=== PATIENT | female | born 1990 | race Caucasian/White ===

== ENCOUNTER 2017-04-09 18:36 | Emergency (ER) | payer OTHER ==
[2017-04-09] MEDS ORDERED: ALBUTEROL SULFATE/IPRATROPIUM 3 ML NEBU IH ONE ×2 (18:56→19:01)
--- NOTE | 2017-04-09 18:57 | ERNOTE ---
Date of Service: 04/09/17 Time Seen by Provider: 04/09/17 18:51 Stated Complaint: COUGH, CHEST CONGESTION Presenting Symptoms:: cough Source: patient, family, RN notes reviewed Exam Limitations: no limitations Immunizations: IMMUNIZATION HX Immunizations Up to Date Yes History of Influenza Vaccine No Hx Pneumococcal Vaccination No Allergies/Adverse Reactions: Allergies diclofenac [From Voltaren] Allergy (Severe, Verified 04/09/17 18:46) Anaphylaxis cefaclor [From Ceclor] Allergy (Intermediate, Verified 04/09/17 18:46) Hives Home Medications: HOME MEDICATIONS Albuterol Sulfate [Albuterol Sulfate 2.5 MG/3 ML] 2.5 mg IH Q4H #60 vial.neb 12/17 [Last Taken Unknown] Albuterol Sulfate [Ventolin Hfa] 1 - 2 puff IH Q4H PRN #1 inhaler 04/09/17 [ Last Taken Unknown] Cetirizine HCl [Zyrtec] 10 mg PO DAILY 04/09/17 [Last Taken Unknown] Diphenhydramine HCl [Benadryl Allergy] 50 mg PO BID 04/09/17 [Last Taken Unknown ] Fluticasone Propionate [Clarispray] 9.9 ml NS DAILY 04/09/17 [Last Taken Unknown ] Multivitamin [Multivitamins] 1 each PO DAILY 04/09/17 [Last Taken Unknown] Omeprazole 10 mg PO DAILY 04/09/17 [Last Taken Unknown] Promethazine HCl/Codeine [Prometh-Codein 6.25-10 mg/5 ml] 5 ml PO Q4H PRN #120 ml 04/09/17 [Last Taken Unknown] predniSONE [Prednisone] 2 tab PO DAILY #14 tab 04/09/17 [Last Taken Unknown] - History of Present Ilness Narrative: 27 year old female presents to the ED for a cough and wheezing that began 2 weeks ago. She was seen in an outside ED and diagnosed with bronchitis. She has underlying asthma. She was given an IM dose of steroids and an antibiotic - she believes this may have been Biaxin. She has finished it. She continues to have a frequent harsh cough and wheezing. She has been using her albuterol nebulizer with some improvement. Timing: getting worse Frequency/Possible Cause: Reports: illness exposure Associated Symptoms: Reports: cough, shortness of breath, wheezing, nasal congestion, headache. Denies: chest pain/soreness, facial pain, nasal drainage , dizziness, lightheadedness, earache, sore throat, muscle aches, fever/chills Prior Treatment: Reports: recently seen, treated by physician Review of Systems - Review of Systems Constitutional: Present: fatigue, malaise. Absent: fever, chills EYE: Present: no symptoms reported ENT: Present: See HPI Respiratory: Present: See HPI Cardiology: Absent: palpitations, syncope, edema Gastrointestinal/Abdominal: Absent: nausea, abdominal pain Genitourinary: Present: no symptoms reported Musculoskeletal: Absent: muscle pain, neck pain Skin: Absent: rash, lesions Neurological: Present: See HPI Endocrine: Present: no symptoms reported Hematologic/Lymphatic: Present: no symptoms reported Psych: Absent: anxiety - Patient's Past Medical History Patient History - Medical: No pertinent hx Patient History - Cardiac/Respiratory: Asthma Patient History - Cancer: No Hx of Cancer Patient History - Surgical Procedures: Ear Tubes, T & A Patient History - Other: None LMP (females 10-50): 3 weeks LMP (Calendar): 03/24/17 - Family History Mother Family History - Cardiac/Respiratory: CHF, Hypertension, Other Father Family History - Medical: Diabetes Type 2 Insulin Dependent - Social History Living Situations: home Abuse History: No History of abuse Psych History: No pertinent hx Smoking Status: Never smoker Have you smoked in the past 12 months: No Do you dip or chew tobacco: No Alcohol Use: none Drug Use: none - Immunizations Immunizations Up to Date: Yes Hx Pneumococcal Vaccination: No History of Influenza Vaccine: No Physical Exam - Physical Exam General Appearance: Present: wd/wn, alert, no apparent distress Ears, Nose, Throat: Present: nasal congestion. Absent: abnormal TM (R), abnormal TM (L), sinus pain/drainage, pharyngeal erythema, dry mucous membranes Neck: Present: normal inspection, nontender, supple Respiratory: Present: no respiratory distress, no accessory muscle use, expiration (prolonged), wheezing Cardiovascular/Chest: Present: regular rate, rhythm, no murmur, normal peripheral pulses Extremity Exam: Present: normal inspection, normal range of motion, no edema Neurological Exam: Present: alert, oriented, normal mood/affect, no motor/ sensory deficits Skin Exam: Present: normal color, warm/dry ED Progress - Vital Signs Patient's Vital Signs:: I have reviewed the patient's vital signs. Vital Signs: Vital Signs 04/09/17 18:41 Temperature 37.1 C Pulse Rate 109 H Respiratory 14 Rate Blood Pressure 130/92 O2 Sat by Pulse 95 Oximetry - Progress/Reassessment Chief Complaint: Cough Progress:: Unchanged Plan - Plan Plan: Duoneb given without much improvement but patient does not appear to be in any distress. SpO2 94 to 97%. Continues to have expiratory wheezing but with good air movement. Given prednisone and cough syrup prior to d/c. Discussed indications for needing f/u. Patient in agreement with plan. Departure Clinical Impression: Asthma exacerbation Qualifiers: Asthma severity: unspecified severity Asthma persistence: unspecified Qualified Code(s): J45.901 - Unspecified asthma with (acute) exacerbation - Departure Disposition: Home Follow Up Needed Condition: Stable Instructions: Asthma, Acute Bronchospasm, Form - Excuse from Work, School, or Physical Activity Prescriptions: Albuterol Sulfate [Ventolin Hfa] 1 - 2 puff IH Q4H PRN #1 inhaler PRN Reason: Shortness Of Breath Albuterol Sulfate [Albuterol Sulfate 2.5 MG/3 ML] 2.5 mg IH Q4H #60 vial.neb predniSONE [Prednisone] 2 tab PO DAILY #14 tab Promethazine HCl/Codeine [Prometh-Codein 6.25-10 mg/5 ml] 5 ml PO Q4H PRN #120 ml PRN Reason: Cough
[2017-04-09] MEDS ORDERED: predniSONE 20 MG TABLET PO ONE (19:35)
[2017-04-09] MEDS ORDERED: CODEINE PHOSPHATE/GUAIFENESIN 5 ML UDC PO ONE (19:36)
[2017-04-09] MEDS ORDERED: CODEINE PHOSPHATE/GUAIFENESIN 5 ML UDC ONE ×2 (19:40→19:42)
[2017-04-09] MEDS ORDERED: predniSONE 20 MG TABLET ONE (19:40)
[2017-04-09 20:01] VITALS: BP 132/92
== END 2017-04-09 19:56 | disposition home or self-care (01) ==
LOC: ER 18:36
DX: J45.901 Unspecified asthma with (acute) exacerbation (principal)